=== PATIENT | female | born 1995 | race Two or more races ===

== ENCOUNTER 2025-01-16 10:34 | Emergency (ER) | payer OTHER ==
[~2025-01-16] VITALS: Ht 167.6 cm; Wt 73.8 kg
--- NOTE | 2025-01-16 11:08 | ED.PDOC ---
HPI (NEURO) HPI Comments 29 y.o female presents to the ED for a chief complaint of sharp shooting pain to lower back, radiating to the posterior side of her right leg and down to her calf, associated with right foot numbness x 10 days. Patient reports pain worsens when she is sitting for a long period of time and also mentions numbness to the foot was intermittent but became constant today. Patient denies any nausea, vomiting, vision changes, slurred speech, focal deficits, confusion, chest pain, SOB, bowel or bladder symptoms. She denies any medical, surgical history or allergies. Time Seen by MD: 10:46 Reviewed Notes: Nurses Notes, Medications, Allergies Information Source: Patient Mode of Arrival: Ambulatory Severity: Moderate Headache Severity: None Duration: Since onset Onset: At rest Circumstances: Spontaneous Symptoms: Numbness Modifying factors: Nothing Associated Signs and Symptoms: Numbness Past Medical History PAST MEDICAL HISTORY: Denies Surgical History: Denies all surgeries REGISTERED APPRAISER History: No Pertinent REGISTERED APPRAISER History Social History Smoker: Non-Smoker Alcohol: Denies ETOH Use Drugs: Denies Drug Use Lives In: Home Constitutional: denies: chills, diaphoresis, fatigue, fever, malaise, sweats, weakness, others EENTM: denies: blurred vision, double vision, ear bleeding, ear discharge, ear drainage, ear pain, ear ringing, eye pain, eye redness, hearing loss, mouth pain, mouth swelling, nasal discharge, nose bleeding, nose congestion, nose pain, photophobia, tearing, throat pain, throat swelling, voice changes, others Respiratory: denies: cough, hemoptysis, orthopnea, SOB at rest, shortness of breath, SOB with excertion, stridor, wheezing, others Cardiovascular: denies: chest pain, dizzy spells, diaphoresis, Dyspnea on exertion, edema, irregular heart beat, left arm pain, lightheadedness, palpitations, PND, syncope, others Gastrointestinal: denies: abdomen distended, abdominal pain, blood streaked bowels, constipated, diarrhea, dysphagia, difficulty swallowing, hematemesis, melena, nausea, poor appetite, poor fluid intake, rectal bleeding, rectal pain, vomiting, others Genitourinary: denies: abnormal vagina bleeding, burning, dyspareunia, dysuria, flank pain, frequency, hematuria, incontinence, pain, , vagina discharge, urgency, others Neurological: reports: numbness (right foot ); denies: dizziness, fainting, headache, left sided numbness, left sided weakness, paresthesia, pre-existing deficit, right sided numbness, right sided weakness, seizure, speech problems, tingling, tremors, weakness, others Musculoskeletal: reports: back pain (left lower side ), others (left leg and left calf pain ); denies: gout, joint pain, joint swelling, muscle pain, muscle stiffness, neck pain Integumetry: denies: bruises, change in color, change in hair/nails, dryness, laceration, lesions, lumps, rash, wounds, others Allergic/Immunocompromised: denies: Difficulty Healing, Frequent Infections, Hives, Itching, others Hematologic/Lymphatic: denies: anemia, blood clots, easy bleeding, easy bruising, swollen glands, others Endocrine: denies: excessive hunger, excessive sweating, excessive thirst, excessive urination, flushing, intolerance to cold, intolerance to heat, unexplained weight gain, unexplained weight loss, others Psychiatric: denies: anxiety, bipolar disorder, depression, hopeless, panic disorder, schizophrenia, sleepless, suicidal, others All Other Systems: Reviewed and Negative Physical Exam General Appearance: No Apparent Distress, Obese HEENT: PERRL/EOMI Neck: Full Range of Motion, Non-Tender, Normal Inspection, Supple Respiratory: Lungs Clear, No Accessory Muscle Use, No Respiratory Distress, Normal Breath Sounds Cardiovascular: No Edema, No JVD, Regular Rate/Rhythm Breast Exam: Deferred Gastrointestinal: Non Tender, Soft Genitalia: Deferred Pelvic: Deferred Rectal: Deferred Extremities: Normal inspection, Normal range of motion, Non-tender, No pedal edema Neurologic: Alert (Oriented x4.), No Motor Deficits, Normal Affect, Normal Mood, No Sensory Deficits, Other (Ambulatory. No gross focal deficit.) Cerebellar Function: NOT DONE Reflexes: NOT DONE Skin: Dry, Normal Color, Warm Peripheral Pulses: 2+ dorsalis pedis (R), 2+ dorsalis pedis (L) Lymphatic: NOT DONE Was a procedure done? Was a procedure done?: No Differential Diagnosis (SZ) Seizure: Other (Musculoskeletal pain, disc disease, sciatic nerve pain, other neuropathy, UTI, among others) General Weakness: Electrolyte imbalance, Other (sciatica ) X-Ray, Labs, Meds, VS Vital Signs Date Time Temp Pulse Resp B/P (MAP) Pulse Ox O2 Delivery O2 Flow Rate FiO2 01/16/25 11:20 85 18 95 Room Air* 0 21 01/16/25 10:42 98.6 86 16 122/83 (96) 99 Lab Test 01/16/25 11:22 01/16/25 10:52 Range/Units White Blood Count 7.1 4.4-10.8 10^3/uL Red Blood Count 3.97 L 4.0-5.20 10^6/uL Hemoglobin 12.9 12.2-16.2 g/dL Hematocrit 38.3 36.0-46.0 % Mean Corpuscular Volume 96.4 80.0-100.0 fL Mean Corpuscular Hemoglobin 32.4 H 28.0-32.0 pg Mean Corpuscular Hemoglobin Concent 33.6 32.0-36.0 g/dL Red Cell Distribution Width 12.9 11.8-14.3 % Platelet Count 267 140-450 10^3/uL Mean Platelet Volume 8.3 6.9-10.8 fL Neutrophils (%) (Auto) 58.3 37.0-80.0 % Lymphocytes (%) (Auto) 28.9 10.0-50.0 % Monocytes (%) (Auto) 8.4 0.0-12.0 % Eosinophils (%) (Auto) 3.9 0.0-7.0 % Basophils (%) (Auto) 0.5 0.0-2.0 % Neutrophils # (Auto) 4.2 1.6-8.6 10 ^3/uL Lymphocytes # (Auto) 2.1 0.4-5.4 10 ^3/uL Monocytes # (Auto) 0.6 0-1.3 10 ^3/uL Eosinophils # (Auto) 0.3 0-0.8 10 ^3/uL Basophils # (Auto) 0 0-0.2 10 ^3/uL Nucleated Red Blood Cells 0.2 % Sodium Level 139 136-145 mmol/L Potassium Level 3.5 3.5-5.1 mmol/L Chloride Level 104 98-107 mmol/L Carbon Dioxide Level 27 20-31 mmol/L Anion Gap 8 5-15 Blood Urea Nitrogen 12 9-23 mg/dL Creatinine 0.86 0.550-1.02 mg/dL Glomerular Filtration Rate Calc 95 >90 mL/min BUN/Creatinine Ratio 14.0 10.0-20.0 Serum Glucose 105 74-106 mg/dL Calcium Level 9.4 8.7-10.4 mg/dL Beta HCG, Quantitative 0.2 L 1.5-4.2 mIU/mL Urine Color Pending Urine Clarity Pending Urine pH Pending Urine Specific [place] Pending Urine Protein Pending Urine Ketones Pending Urine Blood Pending Urine Nitrite Pending Urine Bilirubin Pending Urine Urobilinogen Pending Urine Leukocyte Esterase Pending Urine RBC Pending Urine Microscopic WBC Pending Urine Squamous Epithelial Cells Pending Urine Bacteria Pending Urine Glucose Pending Current Medications Medications (Trade) Dose Ordered Sig/Sam Route Start Time Stop Time Status Last Admin Dexamethasone Sodium Phosphate (Decadron Injection) 10 mg ONCE ONCE IM 01/16/25 11:00 01/16/25 11:01 DC 01/16/25 11:14 Ketorolac Tromethamine (Toradol Injection) 60 mg ONCE ONCE IM 01/16/25 11:00 01/16/25 11:01 DC 01/16/25 11:14 Methocarbamol (Robaxin) 1,000 mg ONCE ONCE PO 01/16/25 11:00 01/16/25 11:01 DC 01/16/25 11:14 ROCEDURE(s): LS2CT - LS SPINE WO CONTRAST REASON: R low back pain, RLE pain, R foot numb ORDER NUMBER(s): [id number], ACCESSION NUMBER(s): [id number] EXAM: CT LS SPINE WO CONTRAST HISTORY: R low back pain, RLE pain, R foot numb COMPARISON: None CTDIvol 25 mGy, DLP 914 mGy*cm. TECHNIQUE: Multiple axial CT images of the spine were obtained using bone algorithm. Axial and coronal reformatting was done. Bone and soft tissue windows were reviewed. FINDINGS: No CT evidence of acute fracture, spinal dislocation, or significant appearing acute subluxation is seen. Several small Schmorl's nodes are noted including at T11, T12, L3, and S1. Trace anterolisthesis L5/S1. Mild degenerative disc change at T11-T12 with mild sclerosis at the anterior aspect of the T12 superior endplate. No significant osseous spinal canal or neural foraminal narrowing. Mild degenerative change of the sacroiliac joints. Mild dextrocurvature in the lower thoracic spine. The visualized paraspinal soft tissues are grossly unremarkable. IMPRESSION: No evidence of acute fracture or dislocation of the lumbar spine. No significant osseous spinal canal or neural foraminal narrowing. X-Ray, Labs, Meds, VS Comment 29-year-old female with no significant past history complaining of right-sided low back pain radiating to the right lower extremity with associated subjective sensation of right foot numbness Vitals unremarkable Exam remarkable for right-sided lumbar paraspinal soft tissue tenderness/ muscle spasm. No gross focal neurologic deficit CBC, basic metabolic panel, hCG unremarkable CT lumbar IMPRESSION: No evidence of acute fracture or dislocation of the lumbar spine. No significant osseous spinal canal or neural foraminal narrowing. Patient treated with the following in the ED: Toradol 60 mg IM, dexamethasone 10 mg IM, Robaxin 1 g p.o. On re-evaluation, patient states pain has improved and she is well-appearing. There were no new focal neurologic deficits and the patient is ambulatory. Hospitalization was considered, however patient had rapid improvement of symptoms with treatment in the ED, and I no longer feel hospitalization is necessary. Patient now appears stable for discharge with close outpatient follow-up at [facility] for outpatient MRI and referral to and ortho/victims advocate clerk/specialist. Rx ibuprofen, Robaxin Time of 1ST Reevaluation: 11:08 Reevaluation 1ST: Unchanged Patient Education/Counseling: Diagnosis, Treatment, Prognosis Family Education/Counseling: No Family Present Departure 1 Departure Time of Disposition: 12:34 Impression: Primary Impression: Lumbar radiculopathy, right Disposition: 01 HOME / SELF CARE / HOMELESS Condition: Stable Additional Instructions: Blood tests were unremarkable. Your CT scan was unremarkable. The report is included below. I have prescribed pain medication and muscle relaxers for your symptoms. Follow-up with your primary doctor in 1-2 days for referral for patient spine MRI and referral to an orthopedic/victims advocate clerk/specialist. [address] [address] Ph: [phone] DIAGNOSTIC IMAGING Diagnostic Imaging Report : [id number] Signed PATIENT: YRN SAEED ACCT: [id number] UNIT: [id number] : 1995 LOC: ER ROOM / BED: / AGE / SEX: 29 / F ADM STATUS: REG ER SERVICE [id number] ORDERING PHYSICIAN: CHATA ALCANTAR MD PROCEDURE(s): LS2CT - LS SPINE WO CONTRAST REASON: R low back pain, RLE pain, R foot numb ORDER NUMBER(s): [id number], ACCESSION NUMBER(s): [id number] EXAM: CT LS SPINE WO CONTRAST HISTORY: R low back pain, RLE pain, R foot numb COMPARISON: None CTDIvol 25 mGy, DLP 914 mGy*cm. TECHNIQUE: Multiple axial CT images of the spine were obtained using bone algorithm. Axial and coronal reformatting was done. Bone and soft tissue windows were reviewed. FINDINGS: No CT evidence of acute fracture, spinal dislocation, or significant appearing acute subluxation is seen. Several small Schmorl's nodes are noted including at T11, T12, L3, and S1. Trace anterolisthesis L5/S1. Mild degenerative disc change at T11-T12 with mild sclerosis at the anterior aspect of the T12 superior endplate. No significant osseous spinal canal or neural foraminal narrowing. Mild degenerative change of the sacroiliac joints. Mild dextrocurvature in the lower thoracic spine. The visualized paraspinal soft tissues are grossly unremarkable. IMPRESSION: No evidence of acute fracture or dislocation of the lumbar spine. No significant osseous spinal canal or neural foraminal narrowing. ATED BY: ELZBIETA MCKEON DO DICTATED DATE/TIME: 01/16/25 1318 Discharged With: Relative Critical Care Note Critical Care Time?: No Stability Stability form required: No Heart Score Heart Score: Heart Score Response (Comments) Value History N/A 0 EKG N/A 0 Age N/A 0 Risk Factors N/A 0 Troponin N/A 0 Total 0 I personally scribed for CHATA ALCANTAR MD ([email or web address]) on 01/16/25 at 11:08. Electronically submitted by Veronica Guillen ([facility]). CHATA ALCANTAR MD Jan 16, 2025 11:08
[2025-01-16] MEDS: KETOROLAC TROMETH 60MG/2ML VIAL IM ONE (11:14)
[2025-01-16] MEDS: METHOCARBAMOL 500 MG TAB PO ONE (11:14)
[2025-01-16] MEDS: DexAMETHasone SOD PHOS 10MG/1ML VIAL INJ IM ONE (11:14)
[2025-01-16 11:20] VITALS: PULSE 85; RESP 18; O2SAT 95
[2025-01-16 11:59] LABS: Basophils # (auto) 0 10 ^3/uL (0-0.2); Basophils % (auto) 0.5 % (0.0-2.0); Eosinophils # (auto) 0.3 10 ^3/uL (0-0.8); Eosinophils % (auto) 3.9 % (0.0-7.0); Hematocrit 38.3 % (36.0-46.0); Hemoglobin 12.9 g/dL (12.2-16.2); Lymphocytes # (auto) 2.1 10 ^3/uL (0.4-5.4); Lymphocytes % (auto) 28.9 % (10.0-50.0); Mean Corpuscular Hemoglobin 32.4 pg (28.0-32.0); Mean Corpuscular Hgb Conc. 33.6 g/dL (32.0-36.0); Mean Corpuscular Volume 96.4 fL (80.0-100.0); Monocytes # (auto) 0.6 10 ^3/uL (0-1.3); Monocytes % (auto) 8.4 % (0.0-12.0); Neutrophils # (auto) 4.2 10 ^3/uL (1.6-8.6); Neutrophils % (auto) 58.3 % (37.0-80.0); Nucleated Red Blood Cells % 0.2 %; Platelet Count (auto) 267 10^3/uL (140-450); Red Blood Cells 3.97 10^6/uL (4.0-5.20); Red Cell Distribution Width 12.9 % (11.8-14.3); White Blood Cell 7.1 10^3/uL (4.4-10.8)
[2025-01-16 12:25] LABS: Anion Gap 8 (5-15); Carbon Dioxide 27 mmol/L (20-31); Chloride 104 mmol/L (98-107); Sodium 139 mmol/L (136-145)
[2025-01-16 12:26] LABS: Calcium 9.4 mg/dL (8.7-10.4)
[2025-01-16 12:29] LABS: Potassium 3.5 mmol/L (3.5-5.1)
[2025-01-16 12:30] LABS: Glucose 105 mg/dL (74-106)
[2025-01-16 12:31] LABS: Blood Urea Nitrogen 12 mg/dL (9-23)
--- NOTE | 2025-01-16 13:21 | DVH ---
EXAM: CT LS SPINE WO CONTRAST HISTORY: R low back pain, RLE pain, R foot numb COMPARISON: None CTDIvol 25 mGy, DLP 914 mGy*cm. TECHNIQUE: Multiple axial CT images of the spine were obtained using bone algorithm. Axial and coron al reformatting was done. Bone and soft tissue windows were reviewed. FINDINGS: No CT evidence of acute fracture, spinal dislocation, or significant appearing acute subluxation is seen. Several small Schmorl's nodes are noted including at T11, T12, L3, and S1. Trace anterolisthesis L5/S 1. Mild degenerative disc change at T11-T12 with mild sclerosis at the anterior aspect of the T12 sup erior endplate. No significant osseous spinal canal or neural foraminal narrowing. Mild degenerative change of the sacroiliac joints. Mild dextrocurvature in the lower thoracic spine. The visualized paraspinal soft tissues are grossly unremarkable. IMPRESSION: No evidence of acute fracture or dislocation of the lumbar spine. No significant osseous spinal canal or neural foraminal narrowing.
[2025-01-16 14:01] VITALS: BP 115/83; PULSE 79; RESP 17; O2SAT 98
[2025-01-16 14:15] LABS: Urine Bacteria FEW /hpf (None Seen); Urine Blood 3+ /uL (Negative); Urine Clarity Clear (Clear); Urine Color Yellow (Yellow); Urine Mucus FEW (None Seen); Urine Protein, UAD 1+ (Negative); Urine Squamous Epithelial Cell MOD /hpf (<5); Urine Urobilinogen 2 mg/dL (Negative); Urine WBC 6 /HPF (0-5)
== END 2025-01-16 14:02 | disposition home or self-care (01) ==
LOC: ER 10:34
DX: M54.16 Radiculopathy, lumbar region (principal)
CPT/HCPCS: 36415; 72131; 80048; 81001; 84702; 85025; 96372; 99285; J1100; J1885